=== PATIENT | female | born 2005 | race Caucasian/White ===

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

== ENCOUNTER 2024-01-19 22:28 | Emergency (ER) | payer MEDICAID, SELFPAY ==
[2024-01-19 22:29] VITALS: BP 110/73; PULSE 58; PULSE 69; RESP 15; RESP 16; TEMP 36.6; O2SAT 100; BMI 24.0
--- NOTE | 2024-01-19 23:55 | EDS_ITS ---
HPI History of Present Illness Chief Complaint: Eye Problem Informant: patient Narrative Narrative: Patient is a 19-year-old transgender female with history of asthma anxiety and bipolar disorder. He reports that he has felt an irritation in his right eye for the last roughly 24 hours. He states he tried flushing his eye with no symptom improvement. He denies any change in vision or injury. He denies any history of contact lens use. However despite the persistent sensation he comes in for evaluation [facility] Medical History (Updated 01/20/24 @ 00:[address] Anthony Burciaga DO) Anxiety Asthma Bipolar disorder Depression Gender dysphoria H/O drug abuse Headache Heart palpitations Pilonidal abscess Home Medications testosterone cypionate 200 mg/mL intramuscular oil 200 mg IM TH 09/23/22 [History Last Taken Unknown] metoprolol tartrate 25 mg tablet 25 mg PO Q12H high heart rate 08/28/23 [History Last Taken 08/28/23] ciprofloxacin HCl 0.3 % eye drops 2 drp RIGHT EYE 4X/DAY 5 days #10 mL 01/19/24 [Rx Last Taken Unknown] Allergy/AdvReac Type Severity Reaction Status Date / Time No Known Allergies Allergy Verified 01/19/24 22:32 Family History Mother Diabetes Social History current occupation: [employer]/ [employer] Smoking Status: Current every day smoker tobacco type: cigarettes and e- cigarettes second hand exposure: Yes alcohol intake: never substance use type: former substance user, marijuana, crack/cocaine, methamphetamine and other seatbelt use: always additional social history: Girlfriend- Ariela SAMS [email or web address] ED Constitutional Constitutional ED: Denies chills or fever(s) Eyes Eyes: Reports other Details: Positive right eye pain ; Denies blurry vision or change in vision ENT ENT ED: Denies sore throat Cardiovascular Cardiovascular: Denies chest pain Respiratory/Chest Respiratory/Chest: Denies cough or dyspnea Gastrointestinal Gastrointestinal: Denies abdominal pain, diarrhea, nausea or vomiting Genitourinary Genitourinary ED: Denies dysuria Musculoskeletal Musculoskeletal: Denies myalgias Integumentary Denies rash Neurologic Neurologic: Denies headache(s) Hematologic/Lymphatic Hematologic/Lymphatic: Denies easy bleeding or easy bruising EXAM Physical Exam Const Vital Signs: 01/19/24 22:29 01/19/24 22:29 Temperature 98 F 98 F Temperature Source Temporal Temporal Pulse Rate 69 58 L Respiratory Rate 15 16 Blood Pressure 110/73 110/73 Blood Pressure Mean 85 85 Pulse Ox 100 100 Oxygen Delivery Method Room Air Room Air Positive well nourished and well developed General Appearance ED: well developed HEENT HEENT Narrative: Normocephalic atraumatic Eyes PERRL and EOMs intact bilaterally Eyes Narrative: Pupils are equal reactive to light and accommodation and extraocular muscles are intact bilaterally There is mild scleral injection of the right eye compared to left Upper lid of the right eye was everted there is no retained foreign body. However evaluation of the cornea does show a small foreign body along the 3 o'clock position lying over top of the iris. Suárez lamp exam reveals uptake of dye at the site consistent with corneal abrasion but negative Angelica sign. Neck supple Resp normal respiratory effort and clear to auscultation bilaterally Cardio regular rate and regular rhythm Extremity normal to inspection Neuro oriented x3, CN's II-XII intact bilaterally, moves all extremities and no sensory deficits noted Sensorium / Orientation: alert Motor Exam: strength 5/5 throughout Psych mental status grossly normal Skin no rashes or lesions noted MDM MDM MDM Narrative Medical decision making narrative: Patient presented with mild pain and foreign body sensation of the right. She/he denies contact lens use or trauma. Exam shows a small foreign object of the right cornea but there is no signs of globe rupture. Patient had complete relief of pain with tetracaine and a wet Q-tip was able to remove the foreign object completely. As patient has a corneal abrasion there is also still concern for infection in the setting so therefore she was placed on ciprofloxacin ophthalmic drops at this time as the foreign object has been removed and there is no signs of globe rupture patient is otherwise safe for discharge History & Record Review Discussion w/independent historian: Patient Discharge Plan Triage Chief Complaint: Eye Problem ED Provider: Anthony Burciaga Dx/Rx/DC Orders Clinical Impression: Foreign body in cornea, right eye, initial encounter, Bipolar disorder, Asthma Instructions: Foreign Object in the Cornea, ED Corneal Abrasion Prescriptions: New ciprofloxacin HCl 0.3 % drops 2 drp RIGHT EYE 4X/DAY 5 Days Qty: 10 0RF No Action testosterone cypionate 200 mg/mL oil 200 mg IM TH Patient Comments: INJECT 50 MG INTRAMUSCULARLY ONCE A WEEK Strength 200 mg/mL metoprolol tartrate 25 mg tablet 25 mg PO Q12H Patient Comments: TAKE 1 TABLET BY MOUTH TWICE DAILY Primary Care Provider: [facility],Natalie Thomas Referrals: Getachew Rudd MD [Med Staff - Active Staff] - [facility],Natalie Thomas [Primary Care Provider] - Activity Restrictions/Additional Instructions: You had a foreign object in your right eye/cornea that led to a small scrape/abrasion. The foreign object has been removed but the abrasion will take on average 3 to 5 days to heal. Use the prescribed antibiotic eyedrops to prevent infection and follow-up with ophthalmology or return to the ER should you have any further concerns Disposition Disposition: Home, Self Care
[2024-01-20] MEDS: Tetracaine 0.5% Ophthalmic Bottle 1 DRP RIGHT EYE (00:15)
[2024-01-20] MEDS: Fluorescein 1 MG STRIP 1 STRIP RIGHT EYE (00:15)
== END 2024-01-20 00:17 | disposition home or self-care (01) ==
PROVIDERS: Emergency Provider Emergency Medicine; Visit Provider Emergency Medicine
DX: T15.01XA Foreign body in cornea, right eye, initial encounter (principal); F31.9 Bipolar disorder, unspecified; X58.XXXA Exposure to other specified factors, initial encounter; J45.909 Unspecified asthma, uncomplicated; F17.210 Nicotine dependence, cigarettes, uncomplicated; F17.290 Nicotine dependence, other tobacco product, uncomplicated; F64.0 Transsexualism
CPT/HCPCS: 99282

== ENCOUNTER → 2024-01-22 | Outpatient (CLI) | payer MEDICAID, SELFPAY ==
--- NOTE | 2024-01-22 10:58 | ECHOD_ITS ---
Reason For Study: PALPITATIONS Procedure This was a 2D Doppler, Color Flow transthoracic echocardiogram. Exam performed in department. Left Ventricle Normal LV size. Left ventricular systolic function is normal. The estimated ejection fraction is 55 %. No regional wall motion abnormalities noted. Right Ventricle Normal RV size. Normal systolic function. Atria Normal left atrium. Normal right atrium. Mitral Valve Normal mitral valve. Tricuspid Valve Normal tricuspid valve. Aortic Valve Normal aortic valve. Pulmonic Valve Normal pulmonic valve. Great Vessels Normal aortic root. The pulmonary artery is normal size. Normal inferior vena cava. Pericardium/Pleural No pericardial effusion. MMode/2D Measurements & Calculations LVIDd: 4.8 cm IVSd: 0.60 cm Ao root diam: 2.7 cm LVIDs: 3.3 cm LVPWd: 0.74 cm RVDd: 2.8 cm FS: 31.9 % LAV(MOD-bp): 36.3 ml LVAd ap4: 30.0 cm2 LVAd ap2: 28.7 cm2 LAV(MOD-bp) Indexed: 21.6 ml/m2 LVLd ap4: 8.2 cm LVLd ap2: 7.9 cm LAV(MOD-sp2): 36.2 ml EDV(MOD-sp4): 93.5 ml EDV(MOD-sp2): 84.8 ml LAV(MOD-sp4): 36.2 ml EDV(sp4-el): 92.9 ml EDV(sp2-el): 87.8 ml LVAs ap4: 13.1 cm2 LVAs ap2: 14.1 cm2 LVLs ap4: 6.5 cm LVLs ap2: 6.7 cm ESV(MOD-sp4): 24.1 ml ESV(MOD-sp2): 25.3 ml ESV(sp4-el): 22.6 ml ESV(sp2-el): 25.1 ml EF(MOD-sp4): 74.2 % EF(MOD-sp2): 70.1 % EF(sp4-el): 75.6 % SV(MOD-sp4): 69.4 ml SV(MOD-sp2): 59.5 ml SV(sp4-el): 70.2 ml LA dimension(2D): 3.2 cm LA A4 area: 14.9 cm2 RA A4 area: 10.3 cm2 TAPSE: 2.2 cm Time Measurements MV dec time: 0.18 sec Doppler Measurements & Calculations MV E max hay: 82.0 cm/sec Lat Peak E' Hay: 21.1 cm/sec Med Peak E' Hay: 15.5 cm/sec MV A max hay: 36.6 cm/sec E/E' lat: 3.9 E/E' med: 5.3 MV E/A: 2.2 MV V2 max: 85.7 cm/sec MV P1/2t max hay: 83.4 cm/sec Ao V2 max: 114.8 cm/sec MV max P.9 mmHg MV P1/2t: 55.6 msec Ao max P.3 mmHg MV V2 mean: 33.8 cm/sec MV dec slope: 439.6 cm/sec2 Ao V2 mean: 82.4 cm/sec MV mean P.60 mmHg Ao mean P.1 mmHg MV V2 VTI: 27.7 cm MVA(P1/2t): 4.0 cm2 Ao V2 VTI: 27.9 cm AV (velocity ratio): 0.74 LV V1 max: 92.9 cm/sec PA V2 max: 73.1 cm/sec LV V1 max P.5 mmHg PA V2 mean: 54.3 cm/sec LV V1 mean P.9 mmHg LV V1 mean: 64.5 cm/sec LV V1 VTI: 20.7 cm ECHO/Echo Complete Interpretation Summary Normal LV size. Left ventricular systolic function is normal. The estimated ejection fraction is 55 %. Structurally normal valves. Ordering Physician: Mario Wharton Referring Physician: [facility] Performed By: Shauna Velazquez RDCS, RVT
== END | disposition home or self-care (01) ==
LOC: CVS 10:57
PROVIDERS: Referring Provider Internal Medicine Cardiovascular Disease; Visit Provider Internal Medicine Cardiovascular Disease
DX: R00.2 Palpitations (principal); F19.11 Other psychoactive substance abuse, in remission
CPT/HCPCS: 93306

== ENCOUNTER 2024-02-05 00:06 | Emergency (ER) | payer MEDICAID, SELFPAY ==
[2024-02-05 00:07] VITALS: BP 104/70; PULSE 92; RESP 18; TEMP 36.1; O2SAT 100; BMI 27.6
--- NOTE | 2024-02-05 00:38 | ED.VIS.DENTA ---
HPI History of Present Illness Chief Complaint: Dental Informant: patient Narrative Narrative: Patient states always has dental discomfort and maxillary frontal incisors, worse today and noticed what may be an abscess in the gingiva above this tooth. Noticed some minor bleeding not sure where it came from earlier. No other discharge. No systemic symptoms or fevers. [facility] Medical History Anxiety Asthma Bipolar disorder Depression Gender dysphoria H/O drug abuse Headache Heart palpitations Pilonidal abscess Home Medications testosterone cypionate 200 mg/mL intramuscular oil 200 mg IM TH 09/23/22 [History Last Taken Unknown] metoprolol tartrate 25 mg tablet 25 mg PO Q12H high heart rate 08/28/23 [History Last Taken 08/28/23] ciprofloxacin HCl 0.3 % eye drops 2 drp RIGHT EYE 4X/DAY 5 days #10 mL 01/19/24 [Rx Last Taken Unknown] amoxicillin 500 mg tablet 500 mg PO TID #30 tabs 02/05/24 [Rx Last Taken Unknown] Allergy/AdvReac Type Severity Reaction Status Date / Time No Known Allergies Allergy Verified 01/19/24 22:32 Family History Mother Diabetes Social History current occupation: [employer]/ [employer] Smoking Status: Current every day smoker tobacco type: cigarettes and e-cigarettes second hand exposure: Yes alcohol intake: never substance use type: former substance user, marijuana, crack/cocaine, methamphetamine and other seatbelt use: always additional social history: Girlfriend- Ariela ROS ROS ED Constitutional Constitutional ED: Denies chills or fever(s) Eyes Eyes: Denies change in vision or double vision ENT ENT ED: Reports dental pain; Denies sinus pain or throat swelling Cardiovascular Cardiovascular: Denies chest pain or palpitations Respiratory/Chest Respiratory/Chest: Denies cough or dyspnea Integumentary Denies abscess or rash Neurologic Neurologic: Denies headache(s), paresthesias or weakness EXAM Physical Exam Const Vital Signs: 02/05/24 00:07 Temperature 97 F L Temperature Source Temporal Pulse Rate 92 Respiratory Rate 18 Blood Pressure 104/70 Blood Pressure Mean 81 Pulse Ox 100 Oxygen Delivery Method Room Air Positive well nourished and well developed General Appearance ED: well developed and NAD HEENT HEENT Narrative: There is decay and tenderness in the maxillary frontal incisors. Above tooth #8, there is a very small 1 millimeter in diameter gingival papule versus vesicle it does not appear to be dental abscess, it appears that it may have already ruptured and may have been the source of the bleeding although the decayed tooth may have also been the source of the bleeding. There is no active bleeding right now. There is no external facial swelling/asymmetry. Face and Sinus: sinuses nontender Throat: posterior oropharynx normal Eyes PERRL and EOMs intact bilaterally Neck no lymphadenopathy and supple Resp normal respiratory effort Neuro oriented x3 and CN's II-XII intact bilaterally Sensorium / Orientation: alert Gait (Neuro): normal gait Psych mental status grossly normal and thought process normal Skin no rashes or lesions noted and no wounds MDM MDM MDM Narrative Medical decision making narrative: Reassured patient this is a small little papule/vesicle does not indicate a dental abscess but it may be related to early dental infection. Has not been on any antibiotics recently so we will prescribe amoxicillin and advised dentistry follow-up. Discharge Plan Triage Chief Complaint: Dental ED Provider: Kenney Rush Dx/Rx/DC Orders Clinical Impression: Pain due to dental caries Instructions: ED Dental Pain Prescriptions: New amoxicillin 500 mg tablet 500 mg PO TID Qty: 30 0RF No Action testosterone cypionate 200 mg/mL oil 200 mg IM TH Patient Comments: INJECT 50 MG INTRAMUSCULARLY ONCE A WEEK Strength 200 mg/mL metoprolol tartrate 25 mg tablet 25 mg PO Q12H Patient Comments: TAKE 1 TABLET BY MOUTH TWICE DAILY ciprofloxacin HCl 0.3 % drops 2 drp RIGHT EYE 4X/DAY 5 Days Qty: 10 0RF Primary Care Provider: Natalie Farias Referrals: [facility] Natalie Gustafson [Primary Care Provider] - As soon as possible (or other dental clinic of choice) Disposition Disposition: Home, Self Care
[2024-02-05] MEDS: AMOXICILLIN 500 MG CAPSULE PO (00:44)
== END 2024-02-05 00:51 | disposition home or self-care (01) ==
LOC: ED 00:46
PROVIDERS: Emergency Provider Emergency Medicine; Visit Provider Emergency Medicine
DX: K02.9 Dental caries, unspecified (principal); F17.210 Nicotine dependence, cigarettes, uncomplicated; F17.290 Nicotine dependence, other tobacco product, uncomplicated; J45.909 Unspecified asthma, uncomplicated
CPT/HCPCS: 99282

== ENCOUNTER 2025-01-02 19:45 | Emergency (ER) | payer MEDICAID, SELFPAY ==
[2025-01-02 19:45] VITALS: BP 93/70; PULSE 97; RESP 16; TEMP 37; O2SAT 98; BMI 26.4
--- NOTE | 2025-01-02 19:58 | ED.VIS.DENTA ---
HPI History of Present Illness Chief Complaint: Dental Informant: patient and spouse/S.O. Narrative Narrative: History of poor dentition upper teeth, seeing the dentist referred to an oral surgeon appointment end of January. Increasing pain with hot and cold sensitivities last 4 days. Subjective fevers. No antibiotic allergies. No trouble swallowing. Prior similar symptoms: Yes PFSH [facility] Medical History Gender dysphoria H/O drug abuse Pilonidal abscess Headache Anxiety Depression Bipolar disorder Asthma Heart palpitations Home Medications ?Medication ?Instructions ?Recorded ?Last Taken ?Type testosterone cypionate 200 mg/mL 200 mg IM TH 09/23/22 Unknown History intramuscular oil metoprolol tartrate 25 mg tablet 25 mg PO Q12H high heart rate #180 04/22/24 Unknown Rx tabs desvenlafaxine succinate 25 mg mg PO DAILY 11/01/24 Unknown History tablet,extended release 24 hr methylprednisolone 4 mg tablets in See Rx Instructions PO PER PKG DIR 11/01/24 Unknown Rx a dose pack (Medrol (Laith)) #21 tabs naltrexone 50 mg tablet mg PO DAILY 11/01/24 Unknown History omeprazole 40 mg capsule,delayed mg PO DAILY 11/01/24 Unknown History release amoxicillin 500 mg tablet 500 mg PO TID #30 tabs 01/02/25 Unknown Rx Allergy/AdvReac Type Severity Reaction Status Date / Time No Known Allergies Allergy Verified 11/01/24 11:29 Family History Mother Diabetes Social History current occupation: [employer]/ [employer] Smoking Status: Current every day smoker tobacco type: cigarettes and e-cigarettes second hand exposure: Yes alcohol intake: never substance use type: former substance user, marijuana, crack/cocaine, methamphetamine and other seatbelt use: always additional social history: Girlfriend- Ariela SAMS ED Constitutional Constitutional ED: Reports fever(s); Denies chills or sweats ENT ENT ED: Reports other Details: Dental pain with dental caries ; Denies sore throat Respiratory/Chest Respiratory/Chest: Denies cough Gastrointestinal Gastrointestinal: Denies diarrhea, nausea or vomiting Neurologic Neurologic: Denies headache(s) EXAM Physical Exam Const Vital Signs: 01/02/25 19:45 Temperature 98.6 F Temperature Source Oral Pulse Rate 97 Respiratory Rate 16 Blood Pressure 93/70 Blood Pressure Mean 77 Pulse Ox 98 Oxygen Delivery Method Room Air Positive well nourished and well developed General Appearance ED: well developed and NAD HEENT Reports moist mucous membranes HEENT Narrative: Dental decay tooth 7 9 and 10, no abscess. No sublingual edema. Airway patent. No trismus. normocephalic and atraumatic Eyes General Eye ED: Yes normal appearance of both eyes Neck full ROM Chest Wall Chest: Negative for tenderness Resp normal respiratory effort and normal air movement Effort and Inspection: symmetric chest movement; Negative for respiratory distress Cardio regular rate, regular rhythm and no murmurs Peripheral Pulses: pulses 2+ throughout GI normal to inspection, nondistended, normoactive bowel sounds and non-tender Palpation: Negative for guarding or rebound tenderness present Extremity normal to inspection General Extremety ED: Negative for edema or tenderness General Extremity: Negative for edema Neuro oriented x3 and no sensory deficits noted Sensorium / Orientation: awake and alert Skin no rashes or lesions noted and no wounds MDM MDM MDM Narrative Medical decision making narrative: Interventions / MDM: Differential diagnosis: Dental caries, dentalgia Diagnosis considered but do not suspect: No clinical dental abscess My EKG interpretation: N/A Imaging independently reviewed and interpreted by myself: N/A External documents reviewed: ED visit February 2024 dental caries placed on amoxicillin. Test considered but not ordered:N/A ED course: Vital stable afebrile nontoxic no clinical abscess. History of similar in the past improving with antibiotics. He has a pending appointment with oral surgeon from history for definitive treatment plans. I will place him back on amoxicillin, use Tylenol or Motrin as needed. He will keep his appointment for definitive treatment plans as an outpatient. All questions were answered. Re-evaluation: stable Disposition discussed with patient/family/significant other: Patient and significant other Case discussed with consulting clinician: N/A This note was generated with [employer] dictation software. It may contain incorrect words, spelling, and punctuation that were not noted in checking the note before signing. Discharge Plan Triage Chief Complaint: Dental ED Provider: Jamie Avitia Dx/Rx/DC Orders Clinical Impression: Dental caries, Dentalgia Instructions: ED Dental Pain, ED Dental Cavity Prescriptions: New amoxicillin 500 mg tablet 500 mg PO TID Qty: 30 0RF No Action metoprolol tartrate 25 mg tablet 25 mg PO Q12H Qty: 180 3RF desvenlafaxine succinate 25 mg tablet extended release 24 hr PO DAILY naltrexone 50 mg tablet PO DAILY omeprazole 40 mg capsule,delayed release(DR/EC) PO DAILY methylprednisolone [Medrol (Laith)] 4 mg tablets,dose pack See Rx Instructions PO PER PKG DIR Qty: 21 0RF Rx Instructions: PO PER PKG DIR testosterone cypionate 200 mg/mL oil 200 mg IM TH Patient Comments: INJECT 50 MG INTRAMUSCULARLY ONCE A WEEK Strength 200 mg/mL Primary Care [facility] - Activity Restrictions/Additional Instructions: Take and finish antibiotics as prescribed. Use Tylenol or Motrin as needed for discomfort. Follow-up with your dentist for definitive treatment plans. Print Language: Divehi Disposition Disposition: Home, Self Care
[2025-01-02] MEDS: AMOXICILLIN 500 MG CAPSULE PO (20:09)
== END 2025-01-02 20:10 | disposition home or self-care (01) ==
PROVIDERS: Emergency Provider Emergency Medicine; PCP Nurse Practitioner Family; Visit Provider Emergency Medicine
DX: K02.9 Dental caries, unspecified (principal); F17.210 Nicotine dependence, cigarettes, uncomplicated; F17.290 Nicotine dependence, other tobacco product, uncomplicated
CPT/HCPCS: 99282